=== PATIENT | female | born 1975 | race Caucasian/White ===

== ENCOUNTER → 2025-03-30 09:33 | Outpatient (REF) | payer BC, SELFPAY | LOC: HWWDC 09:33 | PROVIDERS: ATTENDING PHYSICIAN Obstetrics & Gynecology Gynecology; FAMILY PHYSICIAN Family Medicine | DX: Z12.31 Encounter for screening mammogram for malignant neoplasm of breast (principal) | CPT/HCPCS: 77063; 77067 ==

== ENCOUNTER 2025-04-27 06:21 | Day surgery (SDC) | payer BC, SELFPAY | END 2025-04-27 08:30 | disposition home or self-care (01) | LOC: GI 06:21 | PROVIDERS: ATTENDING PHYSICIAN Internal Medicine Gastroenterology; FAMILY PHYSICIAN Family Medicine | DX: Z12.11 Encounter for screening for malignant neoplasm of colon (principal); K64.8 Other hemorrhoids | CPT/HCPCS: G0121 ==